=== PATIENT | female | born 1980 | race Caucasian/White ===

== ENCOUNTER 2017-10-04 21:19 | Emergency (ER) | payer MEDICAID, OTHER ==
[~2017-10-04] VITALS: Ht 180.3 cm; Wt 109.0 kg
[2017-10-04 21:26] VITALS: Ht 180.3 cm; Wt 109.0 kg
[2017-10-04] MEDS ORDERED: ASPIRIN 325 MG TAB PO STA (21:42)
[2017-10-04] MEDS ORDERED: LORAZEPAM 2 MG INJ IV ONE (22:00)
[2017-10-04] MEDS ORDERED: NITROGLYCERIN (SL) 0.4 MG TAB SL PRN (22:00)
[2017-10-04 22:08] LABS: BASOPHILS % 0.5 % (0.0-2.0); EOSINOPHILS # 0.3 10^3/ul (0.0-0.5); HEMATOCRIT 40.9 % (37.0-47.0); HEMOGLOBIN 13.5 g/dl (12.0-16.0); LYMPHOCYTES # 1.7 10^3/ul (0.8-2.9); MEAN CORPUSCULAR HEMOGLOBIN 29.3 pg (29.0-33.0); MEAN CORPUSCULAR VOLUME 88.9 fl (82.0-101.0); MEAN PLATELET VOLUME 10.1 fl (7.4-10.4); MONOCYTE # 0.4 10^3/ul (0.3-0.9); MONOCYTES % 6.4 % (0.0-11.0); NEUTROPHIL # 4.1 10^3/ul (1.6-7.5); NEUTROPHILS % 62.8 % (39.0-77.0); PLATELET COUNT 270 10^3/UL (140-415); RED CELL DISTRIBUTION WIDTH 13.2 % (11.5-14.5); WHITE BLOOD COUNT 6.6 10^3/ul (4.8-10.8)
[2017-10-04 22:24] LABS: CALCIUM 9.8 mg/dl (8.4-10.2); CREATININE 0.91 mg/dl (0.44-1.00); POTASSIUM 3.8 mmol/L (3.5-5.1)
[2017-10-04 22:36] LABS: TROPONIN-I 0.013 ng/ml (0.00-0.12)
--- NOTE | 2017-10-04 22:56 | RADRPT ---
PROCEDURE: XR Chest. CLINICAL INDICATION: Chest pain. TECHNIQUE: AP view of the chest was obtained. COMPARISON: None available FINDINGS: The cardiomediastinal silhouette is within normal limits. The lungs are clear. No signs of pleural f luid or pneumothorax are seen. The osseous structures and soft tissues are unremarkable. IMPRESSION: 1. No evidence for active cardiopulmonary disease. RPTAT: HGAS .Jarett Gamino MD, MD Date Time Electronically viewed and signed by .Jarett Gamino MD, MD on 10/04/2017 22:56 .S/
[2017-10-04] MEDS ORDERED: LORA1TAB PO (22:57)
--- NOTE | 2017-10-04 23:00 | ERD ---
ER Documentation Chief Complaint Chief Complaint CP since 1829, nonradiating, aching, nonprovoked, increased/decreased HPI This is a 37-year-old female with chest pain since 1829 nonradiating aching non- provoked while she was driving. Patient states that she also had some perioral pins and needle sensation along with pins and needles sensation in both facets of fingertips. No nausea no vomiting no chills. Pain was mild to moderate. Pain is since resolved. Patient denies anxiety, but says she has been under somewhat stressful situations over the past month. ROS All systems reviewed and are negative except as per history of present illness. Medications Home Meds Active Scripts Lorazepam* (Lorazepam*) 1 Mg Tablet, 1 MG PO Q8, #10 TAB Prov:LYNNE CAMPHermes 10/04/17 Allergies Allergies: Coded Allergies: No Known Allergy (Unverified , 10/04/17) PMhx/Soc Medical and Surgical Hx: pt denies Medical Hx, pt denies Surgical Hx Hx Alcohol Use: Yes Hx Substance Use: No Hx Tobacco Use: No Smoking Status: Never smoker Physical Exam Vitals Vital Signs Date Time Temp Pulse Resp B/P Pulse Ox O2 Delivery O2 Flow Rate FiO2 10/04/17 21:26 98.0 85 18 161/116 100 Physical Exam Const: [] Head: Atraumatic Eyes: Normal Conjunctiva ENT: Normal External Ears, Nose and Mouth. Neck: Full range of motion..~ No meningismus. Resp: Clear to auscultation bilaterally Cardio: Regular rate and rhythm, no murmurs Abd: Soft, non tender, non distended. Normal bowel sounds Skin: No petechiae or rashes Back: No midline or flank tenderness Ext: No cyanosis, or edema Neur: Awake and alert Psych: Normal Mood and Affect Result Diagram: 10/04/17215210/04/172152 Results 24 hrs Laboratory Tests Test 10/04/17 21:53 White Blood Count 6.610^3/ul Red Blood Count 4.6010^6/ul Hemoglobin 13.5g/dl Hematocrit 40.9% Mean Corpuscular Volume 88.9fl Mean Corpuscular Hemoglobin 29.3pg Mean Corpuscular Hemoglobin Concent 33.0g/dl Red Cell Distribution Width 13.2% Platelet Count 33130^3/UL Mean Platelet Volume 10.1fl Neutrophils % 62.8% Lymphocytes % 26.0% Monocytes % 6.4% Eosinophils % 4.0% Basophils % 0.5% Nucleated Red Blood Cells % 0.0/100WBC Neutrophils # 4.110^3/ul Lymphocytes # 1.710^3/ul Monocytes # 0.410^3/ul Eosinophils # 0.310^3/ul Basophils # 0.010^3/ul Nucleated Red Blood Cells # 0.010^3/ul Sodium Level 139mmol/L Potassium Level 3.8mmol/L Chloride Level 103mmol/L Carbon Dioxide Level 28mmol/L Anion Gap 12 Blood Urea Nitrogen 16mg/dl Creatinine 0.91mg/dl Glucose Level 112mg/dl Calcium Level 9.8mg/dl Troponin I 0.013ng/ml B-Type Natriuretic Peptide 49PG/ML Current Medications Medications (Trade) Dose Ordered Sig/Lois Route PRN Reason Start Time Stop Time Status Last Admin Dose Admin Aspirin (Aspirin) 325 mg ONCE STAT PO 10/04/17 21:42 10/04/17 21:44 DC Nitroglycerin (Nitroglycerin (Sl Tab) 0.4 Mg) 1 tab Q5M UP TO 3 DOSES PRN SL CHEST PAIN 10/04/17 22:00 10/04/17 22:17 Lorazepam (Ativan) 1 mg ONCE ONCE IV 10/04/17 22:00 10/04/17 22:01 DC 10/04/17 22:17 Procedures/MDM EKG: Rate/Rhythm: [Normal Sinus Rhythm] QRS, ST, T-waves: [No changes consistent w/ acute ischemia] Impression: [No evidence of ischemia or arrhythmia] Chest X-ray 1V Interpreted by me: Soft Tissue: No acute abnormalities Bones: No acute abnormalities Mediastinum/Cardiac Silhouette/Lungs: [No acute abnormalities] Patient's thoracic symptoms have stabilized while in the department and are stable for outpatient follow up. Exam and work up not consistent w/ ischemia, arrhythmia, PE or dissection. Symptomology consistent with anxiety. At this point clinically stable for outpatient management. Does have positive family history, but negative EKG negative troponin. Patient advised to follow-up with primary care physician possible cardiology outpatient workup. Given short course of lorazepam for home. Told to return for any return of symptomology. Advised to stop drinking and start weight loss program under physician supervision. Departure Diagnosis: Primary Impression: Chest pain Chest pain type: unspecified Qualified Code: R07.9 - Chest pain, unspecified type Condition: Stable Patient Instructions: Anxiety Reaction, Chest Pain, Uncertain Cause LYNNE CAMP Oct 04, 2017 23:00
[2017-10-04 23:05] VITALS: BP 126/88; PULSE 88; RESP 20
== END 2017-10-04 23:06 | disposition home or self-care (01) ==
LOC: E/R 21:19
DX: R07.9 Chest pain, unspecified (principal); R06.02 Shortness of breath
CPT/HCPCS: 36415; 71010; 80048; 83880; 84484; 85025; 93005; 96374; J2060; Z7502; Z7610